=== PATIENT | female | born 1955 | race Two or more races ===

== ENCOUNTER 2025-06-06 07:57 | Day surgery (SDC) | payer OTHER ==
[~2025-06-06] VITALS: Ht 170.2 cm; Wt 106.6 kg
[~2025-06-06 07:57] MED LIST: ASCO500T11 PO; BLAC1CAP4 PO; CHOL20007 PO; CYAN-17 PO; LOSA-533 PO; MULT-1018 PO; PROB1CHW27 PO; ZINC100T5 PO; [UNRECOGNIZED DRUG - CODE] OR; [UNRECOGNIZED DRUG - CODE] PO; [UNRECOGNIZED DRUG - CODE] XX
[2025-06-06] MEDS ORDERED: HYDROmorphone HCL 2 MG/ML VL/or syr ONE (08:18)
[2025-06-06] MEDS ORDERED: fentaNYL CITRATE 100 MCG/2 ML VL ONE (08:18)
[2025-06-06] MEDS ORDERED: MIDAZOLAM HCL 2MG/2ML 2ml VIAL (1mg/ml) ONE (08:19)
[2025-06-06] MEDS: ceFAZolin 2 GM/D5W50ml 50 ML IV ONE (09:18)
[2025-06-06] MEDS ORDERED: ROCURONIUM 10MG/ML 10ML VIAL IV ONE (09:47)
[2025-06-06] MEDS ORDERED: ONDANSETRON HCL 4 MG/2 ML VIAL ONE (09:47)
[2025-06-06] MEDS ORDERED: PROPOFOL 10 MG/ML 20 ML IV ONE (09:47)
[2025-06-06] MEDS: BUPIVACAINE 0.25% INJ 50ML VIAL ONE (09:48)
[2025-06-06] MEDS ORDERED: hydrALAZINE HCL 20 MG/ML VL IV PRN (11:15)
[2025-06-06] MEDS ORDERED: MIDAZOLAM HCL 2MG/2ML 2ml VIAL (1mg/ml) IV PRN (11:15)
[2025-06-06] MEDS ORDERED: HYDROmorphone HCL 2 MG/ML VL/or syr IV PRN (11:15)
--- NOTE | 2025-06-06 11:34 | DVHOP2 ---
Operative Report [id number] LEFT BREAST LESION 10 0 CLOCK/11 O CLOCK EXCISION ABOVE WITH ATTEMPTED DAY PROBE AND MANUAL PALPATION OF TUMOR EBL 25 CC ONE DRAIN NO COMPLICATIONS STABLE TRANSFER TO RECOVERY ROOM PAULINE FLORIAN MD Jun 06, 2025 11:34
--- NOTE | 2025-06-06 11:36 | DVH ---
MAMMOGRAPHIC GUIDED BREAST NEEDLE LOCALIZATION. INDICATION: INTRA OP CONFIRMATION OF LEFT BREAST CLIP IMPRESSION: Postop radiograph demonstrates the specified target contained within the specimen.
[2025-06-06 11:37] VITALS: PULSE 86; RESP 15; TEMP 98; O2SAT 91
[2025-06-06 11:38] VITALS: PULSE 86; RESP 14; O2SAT 94
--- NOTE | 2025-06-06 11:53 | DVHOP ---
DATE OF SURGERY: 06/06/2025 PREOPERATIVE DIAGNOSIS: Left breast lesion, rule out cancer. POSTOPERATIVE DIAGNOSIS: Left breast lesion, rule out cancer. PROCEDURE: Left breast lesion excision following possible DAY localization and was informed that DAY localization was not done. She also was scheduled to have a sentinel lymph node biopsy that also was not carried out, so apparently the patient was not aware of these things, but she was taken to surgery and decision was made to remove the tumor and to hold off on the lymph node biopsy based upon tumor findings on pathology. So, the procedure is excision of the left breast mass with ultrasound guidance and Radiology presence. SURGEON: Neo Milton MD TRANSITION MGR RN: None. ANESTHESIA: General. BLOOD LOSS: Close to 25 mL. DRAINS: One drain was used. COMPLICATIONS: No complications were encountered. DESCRIPTION OF PROCEDURE: The patient was prepped and draped in the usual sterile fashion in the supine position. The left breast area was exposed. The marker was located on the 10 o'clock, 11 o'clock vicinity and the [place] could not identify the location and the DAY probe could not identify the lesion and it was possible that she did not have the localization done based upon conversation with the radiologist over the phone and [facility]. With this being addressed, then a decision was made to make an incision in the 10 o'clock, 11 o'clock location going to the 12 o'clock location in a circumareolar fashion. It was taken down to the deeper tissues and the tumor also was felt and it was completely taken out with clean gross margins. It was also felt preoperatively and confirmed by the patient, so based upon palpation, the tumor was taken out with clean gross margins using sharp and Bovie dissection. The superior margin was secured with a long suture. Opposite was inferior. The sharp was medial, opposite was lateral, and the jonathan was applied on the posterior side. The specimen was submitted for extra confirmation. The clips were identified. The specimen was sent for pathology and irrigation was performed. Hemostasis was secured. A quarter-inch Roy drain was placed to drain the subcutaneous tissues and it was secured with a nylon suture. The skin incision was brought together using Vicryl suture for the subcutaneous tissues and 3-0 Monocryl suture for skin closure in a subcuticular fashion. Surgical glue was applied. Steri-Strips were applied. Dressing was applied for the drain site. The patient tolerated the procedure well and was taken back to the recovery room in a stable condition. MD MATTHIAS Carrasco TID: [id number] RECEIPT: [id number] cc: Kali Rivera
[2025-06-06 12:10] VITALS: PULSE 80; RESP 14; O2SAT 94
[2025-06-06] MEDS: MORPHINE SULFATE 4 MG/ML SYR/VIAL IV PRN (12:10)
[2025-06-06] MEDS: ONDANSETRON HCL 4 MG/2 ML VIAL IV PRN (12:10)
[2025-06-06 12:45] VITALS: PULSE 69; RESP 17; O2SAT 98
[2025-06-06 14:00] VITALS: BP 145/74; PULSE 72; RESP 13; O2SAT 95
--- NOTE | 2025-06-07 09:02 | DVH ---
US OF THE LEFT BREAST INDICATION: LOCATE BREAST MARKER TECHNIQUE: Targeted left breast ultrasound was performed. COMPARISON: Prior exam dated: 05/23/25 FINDINGS/IMPRESSION: Unable to localize biopsy marker clip per technologist note.
== END 2025-06-06 14:27 | disposition home or self-care (01) ==
LOC: SUR 07:57
PROVIDERS: ATTEND Surgery
DX: C50.912 Malignant neoplasm of unspecified site of left female breast (principal); N63.20 Unspecified lump in the left breast, unspecified quadrant; R22.2 Localized swelling, mass and lump, trunk; I10 Essential (primary) hypertension; E66.01 Morbid (severe) obesity due to excess calories; Z68.37 Body mass index [BMI] 37.0-37.9, adult; Z79.899 Other long term (current) drug therapy; Z98.890 Other specified postprocedural states
CPT/HCPCS: 19125; 71045; 76642; 88305; 88342; J0690; J1100; J1171; J2250; J2270; J2405; J2704; J3010; J3490

== ENCOUNTER 2025-07-20 10:21 | Day surgery (SDC) | payer OTHER ==
[~2025-07-20] VITALS: Ht 170.2 cm; Wt 106.6 kg
[~2025-07-20 10:21] MED LIST changes: +CINN500C7 PO; +MEBEPOW XX; +[UNRECOGNIZED DRUG - CODE] XX
[2025-07-20] MEDS ORDERED: ceFAZolin 2 GM/D5W50ml 50 ML IV ONE (11:14)
[2025-07-20] MEDS ORDERED: MIDAZOLAM HCL 2MG/2ML 2ml VIAL (1mg/ml) ONE (13:50)
[2025-07-20] MEDS ORDERED: fentaNYL CITRATE 100 MCG/2 ML VL ONE (13:50)
[2025-07-20] MEDS ORDERED: METOCLOPRAMIDE HCL 5MG/ml INJ 2ml VIAL ONE (14:13)
[2025-07-20] MEDS ORDERED: MEPERIDINE HCL (25 MG/ML) 1ML VIAL ONE (14:17)
[2025-07-20] MEDS ORDERED: ceFAZolin 1GM VL ONE (14:43)
[2025-07-20] MEDS ORDERED: MORPHINE SULFATE 4 MG/ML SYR/VIAL IV PRN (14:45)
[2025-07-20] MEDS ORDERED: MIDAZOLAM HCL 2MG/2ML 2ml VIAL (1mg/ml) IV PRN (14:45)
[2025-07-20] MEDS ORDERED: HYDROmorphone HCL 2 MG/ML VL/or syr IV PRN (14:45)
[2025-07-20] MEDS ORDERED: hydrALAZINE HCL 20 MG/ML VL IV PRN (14:45)
[2025-07-20] MEDS ORDERED: ONDANSETRON HCL 4 MG/2 ML VIAL IV PRN (14:45)
[2025-07-20] MEDS: BUPIVACAINE 0.5% INJ 50ML VIAL IJ ONE (14:48)
[2025-07-20 15:06] VITALS: PULSE 85; RESP 19; TEMP 97.3; O2SAT 91
--- NOTE | 2025-07-20 15:08 | DVHOP2 ---
Operative Report [id number] LEFT BREAST CA LEFT AXILLA SENTINEL LN BIOPSY AND LYMPH NODE DISSECTION Loan FLORIAN NO ASSIST ONE DRAIN EBL 25 CC NO COMPLICATIONS PAULINE FLORIAN MD Jul 20, 2025 15:08
--- NOTE | 2025-07-20 15:36 | DVH ---
NUCLEAR MEDICINE LYMPHOSCINTIGRAPHY HISTORY: LYMPH NODE TRACING/BIOPSY TECHNIQUE/DOSE: 1 mCi Lymphoseek divided equally into 2 syringes. 2 intradermal injections around the nipple of the left breast were performed at the 12:00 and 6:00 positions along the areola line. The left breast and axilla were immediately scanned for activity. FINDINGS: The 2 injection sites around the left nipple are visualized. IMPRESSION: Status post left breast lymphoscintigraphy
[2025-07-20 15:50] VITALS: BP 145/70; PULSE 80; RESP 15; O2SAT 96
--- NOTE | 2025-07-20 15:51 | DVHOP ---
DATE OF SURGERY: 07/20/2025 PREOPERATIVE DIAGNOSIS: Left breast cancer. POSTOPERATIVE DIAGNOSIS: Left breast cancer. PROCEDURE: Left axillary lymph node biopsy with sentinel lymph node marking. SURGEON: Neo Milton MD PRINTING SCREEN ASSEMBLER: None. ANESTHESIA: General. ESTIMATED BLOOD LOSS: Close to 25 mL. DRAINS: One drain was used. COMPLICATIONS: No complications encountered. DESCRIPTION OF PROCEDURE: The patient was prepped and draped in the usual sterile fashion in the supine position with the left arm extended out and the left axilla exposed. The lymph node location was in the medial side of the axilla and an incision was applied in a curved fashion on the medial wall of the axilla. It was taken down to the deeper tissues. The level 1 and 2 axillary lymph nodes were located and the sentinel lymph node probe was applied. The lymph node was identified with a read above 1000 units and there were some neighboring lymph nodes that were also noticed and they were all removed with clean gross margins using sharp and Bovie dissection and the sentinel lymph node was marked with a suture, submitted for pathology ____ dissection. There were some neighboring lymph nodes that were taken out later, level 1 and 2, because they were noticed to be big in size and they also were removed with sharp and Bovie dissection, making sure all the nerves and vessels were kept out of harm's way at all times. With this being done, the irrigation was performed. Hemostasis was secured. A size 15-Leonid drainage was placed to drain the deeper tissue, bringing it from the lower part of the incision as a separate incision and securing it with a silk suture. The wound itself was brought together using Vicryl suture for the subcuticular tissues and 3-0 Monocryl suture for skin closure in a subcuticular fashion and surgical glue was applied. Steri-Strips were applied. The patient tolerated the procedure well. She was taken back to the recovery room in a stable condition. MD DORIAN Carrasco/DIOMEDES/LAKESHA TID: [id number] RECEIPT: [id number]
== END 2025-07-20 16:05 | disposition home or self-care (01) ==
LOC: SUR 10:21 → EDSTATUS 11:00 → SUR 16:05
PROVIDERS: ATTEND Surgery
DX: C50.912 Malignant neoplasm of unspecified site of left female breast (principal); I10 Essential (primary) hypertension; E66.9 Obesity, unspecified; Z68.36 Body mass index [BMI] 36.0-36.9, adult; Z79.899 Other long term (current) drug therapy; Z85.3 Personal history of malignant neoplasm of breast; Z98.890 Other specified postprocedural states
CPT/HCPCS: 38525; 78195; 88307; 88331; 88341; 88342; A9541; J0690; J1100; J2175; J2250; J2765; J3010; J3490